=== PATIENT | female | born 1940 ===

== ENCOUNTER 2022-12-29 07:12 | Day surgery (SDC) | payer OTHER | END 2022-12-29 13:50 | disposition home or self-care (01) | LOC: AMB-ENDOS 07:12 | PROVIDERS: ATTEND Surgery | DX: D12.0 Benign neoplasm of cecum (principal); K62.5 Hemorrhage of anus and rectum; R10.9 Unspecified abdominal pain; K64.8 Other hemorrhoids; K57.30 Diverticulosis of large intestine without perforation or abscess without bleeding; Z20.822 Contact with and (suspected) exposure to COVID-19 ==